=== PATIENT | female | born 1950 | race African-American/Black ===

== ENCOUNTER 2019-02-20 19:31 | Inpatient (IN) ==
[2019-02-20] MEDS ORDERED: SODIUM CHLORIDE 0.9% 1,000 ML IV STA ×2 (20:50→22:39)
[2019-02-20 21:41] LABS: Basophils % 0.9 % (0.0-0.8); Eosinophils % 0.9 % (0.00-10.9); Hematocrit 33.9 VOL% (35.7-47.0); Hemoglobin 11.9 GM/DL (12.0-16.0); Immature Granulocytes % 4.3 %; Immature Granulocytes Absolute 0.05 #; Lymphocytes # 0.5 10*3/uL (1.4-4.0); Lymphocytes % 45.3 % (21.3-54.2); Mean Corpuscular HGB Conc 35.1 GM/DL (32-36); Mean Corpuscular Volume 102.4 FL (87-102); Mean Platelet Volume 13.2 FL (9.6-12.0); Monocytes % 29.9 % (1.7-12.7); NRBC # 0.21 10*3/uL; Neutrophils % 18.7 % (38.7-73.9); Platelet Count 159 T/CUMM (130-400); Red Blood Count 3.31 MC/CUMM (3.8-5.5); Red Cell Distribution Width 16.2 % (9.3-17.3); White Blood Count 1.2 T/CUMM (4-12)
[2019-02-20 21:51] LABS: Apearance,Urine CLEAR (Clear); Bilirubin,Urine Negative (Negative); Blood, Urine Small mg/dL (Negative); Glucose,Urine (UA) Negative (Negative); Hyaline Casts,Urine 27 /LPF (0-3); Ketones,Urine 5 mg/dL (Negative); Mucus,Urine Occasional /LPF (Occasional); Nitrite,Urine Negative (Negative); Protein,Urine Negative; RBC,Urine 2 /HPF (0-4); Squamous Epithelial Cell,Urine Occasional /HPF (0-10); Urine Color Amber (Yellow); Urine Specific Gravity 1.019 (1.001-1.035); WBC,Urine 1 /HPF (0-6)
[2019-02-20 22:00] LABS: Barbiturates Screen,Urine Negative (Negative); Benzodiazepines Screen,Urine Negative (Negative); Cannabinoid Screen,Urine Negative (Negative); Opiate Screen,Urine Positive (Negative); Phencyclidine Screen,Urine Negative (Negative)
[2019-02-20 22:03] LABS: Alanine Aminotransferase 46 U/L (13-56); Albumin 2.2 G/DL (3.4-5.0); Alkaline Phosphatase 93 U/L (45-117); Aspartate Amino Transferase 115 U/L (0-37); Blood Urea Nitrogen 74 MG/DL (7-18); Calcium 6.1 MG/DL (8.5-10.1); Glucose 94 MG/DL (74-106); Osmolality,Calculated 294.8 MOS/KG (273-304)
[2019-02-20 22:04] LABS: INR 1.3; PT Patient Result 14.2 SECS
[2019-02-21 00:33] LABS: Band Neutrophils 3 % (0-10); Eosinophils 1 % (0-10); Lymphocytes 52 % (20-55); Metamyelocytes 2 %; Myelocytes 7 %; Nucleated Red Blood Cells 19 (0-5); Segmented Neutrophils 15 % (50-85); Total Cells Counted 100
[2019-02-21 00:46] LABS: Anisocytosis Slight; Atypical Lymphocytes Few; Smudge Cells Few
[2019-02-21 00:47] LABS: Howell-Jolly Bodies Slight; Polychromasia Few
[2019-02-21 00:49] LABS: Macrocytosis Slight; Platelet Estimate Normal; Target Cells Slight
[2019-02-21] MEDS ORDERED: FILGRASTIM-SNDZ 300 MCG/0.5 ML SYRINGE SUBCUT ONE (01:30)
[2019-02-21] MEDS: SODIUM CHLORIDE 0.9% 1,000 ML IV SCH ×2 (02:13→17:53)
[2019-02-21] MEDS: MEROPENEM 500 MG in SODIUM CHLORIDE 0.9% 100 ML IV SCH ×2 (02:14→13:57)
[2019-02-21] MEDS: MORPHINE 4 MG/1 ML VIAL IV PRN ×3 (02:21→20:15)
[2019-02-21 05:43] LABS: Basophils % 1.4 % (0.0-0.8); Hematocrit 35.8 VOL% (35.7-47.0); Hemoglobin 12.3 GM/DL (12.0-16.0); Immature Granulocytes % 10.7 %; Immature Granulocytes Absolute 0.15 #; Lymphocytes # 0.5 10*3/uL (1.4-4.0); Lymphocytes % 32.9 % (21.3-54.2); Mean Corpuscular HGB Conc 34.4 GM/DL (32-36); Mean Corpuscular Volume 103.2 FL (87-102); Mean Platelet Volume 13.4 FL (9.6-12.0); NRBC # 0.44 10*3/uL; Platelet Count 143 T/CUMM (130-400); Red Blood Count 3.47 MC/CUMM (3.8-5.5); Red Cell Distribution Width 16.3 % (9.3-17.3); White Blood Count 1.4 T/CUMM (4-12)
[2019-02-21 06:04] LABS: Albumin 2.2 G/DL (3.4-5.0); Bilirubin,Total 2.1 MG/DL (0.2-1.0); Osmolality,Calculated 298.4 MOS/KG (273-304); Total Protein 5.3 G/DL (6.4-8.3)
[2019-02-21 06:10] LABS: Calcium 5.8 MG/DL (8.5-10.1)
[2019-02-21 06:25] LABS: Band Neutrophils 1 % (0-10); Eosinophils 1 % (0-10); Lymphocytes 47 % (20-55); Nucleated Red Blood Cells 47 (0-5); Segmented Neutrophils 19 % (50-85); Total Cells Counted 100
[2019-02-21 06:26] LABS: Burr Cells Slight; Hypochromasia 1+; Macrocytosis 1+
[2019-02-21 06:27] LABS: Acanthocytes Few; Howell-Jolly Bodies Slight; Polychromasia Slight
[2019-02-21 06:28] LABS: Target Cells Slight
[2019-02-21] MEDS ORDERED: CALCIUM CHLORIDE 1,000 MG/10 ML SYRINGE IV ONE (07:21)
[2019-02-21] MEDS: FLUCONAZOLE INJ 200 MG in PREMIX 1 EACH IV SCH (10:20)
[2019-02-21] MEDS: CALCIUM (CARBONATE) 600 MG TABLET PO SCH ×3 (10:22→20:14)
[2019-02-21] MEDS: PANTOPRAZOLE 40 MG TABLET PO SCH ×2 (10:22→10:30)
[2019-02-21] MEDS ORDERED: GENTAMICIN INJ 120 MG in PREMIX 1 EACH IV ONE (18:00)
[2019-02-22] MEDS: MEROPENEM 500 MG in SODIUM CHLORIDE 0.9% 100 ML IV SCH ×2 (01:48→13:52)
[2019-02-22 04:24] LABS: Basophils % 0.2 % (0.0-0.8); Eosinophils % 0.1 % (0.00-10.9); Hematocrit 31.8 VOL% (35.7-47.0); Hemoglobin 11.3 GM/DL (12.0-16.0); Immature Granulocytes % 17.7 %; Immature Granulocytes Absolute 1.63 #; Lymphocytes # 1.2 10*3/uL (1.4-4.0); Lymphocytes % 12.5 % (21.3-54.2); Mean Corpuscular HGB Conc 35.5 GM/DL (32-36); Mean Corpuscular Volume 100.6 FL (87-102); Mean Platelet Volume 12.9 FL (9.6-12.0); Monocytes % 13.9 % (1.7-12.7); NRBC # 4.58 10*3/uL; Neutrophils % 55.6 % (38.7-73.9); Platelet Count 167 T/CUMM (130-400); Red Blood Count 3.16 MC/CUMM (3.8-5.5); Red Cell Distribution Width 16.2 % (9.3-17.3); White Blood Count 9.2 T/CUMM (4-12)
[2019-02-22 04:49] LABS: Bilirubin,Total 2.3 MG/DL (0.2-1.0); Calcium 6.1 MG/DL (8.5-10.1); Osmolality,Calculated 310.7 MOS/KG (273-304); Total Protein 5.6 G/DL (6.4-8.3)
[2019-02-22 05:02] LABS: Lymphocytes 57 % (20-55); Nucleated Red Blood Cells 33 (0-5); Platelet Estimate Adequate; Polychromasia Few; Segmented Neutrophils 13 % (50-85); Target Cells Few; Total Cells Counted 100
[2019-02-22] MEDS ORDERED: FILGRASTIM-SNDZ 300 MCG/0.5 ML SYRINGE SUBCUT SCH (09:00)
[2019-02-22] MEDS: DEXTROSE 5% NACL 0.45% 1,000 ML IV SCH ×3 (09:32→23:45)
[2019-02-22] MEDS: CALCIUM CHLORIDE 1,000 MG/10 ML SYRINGE IV SCH ×2 (09:33→23:09)
[2019-02-22] MEDS: FLUCONAZOLE INJ 200 MG in PREMIX 1 EACH IV SCH (09:35)
[2019-02-22] MEDS: SODIUM CHLORIDE 0.9% 1,000 ML IV SCH (09:36)
[2019-02-22] MEDS: CALCIUM (CARBONATE) 600 MG TABLET PO SCH (09:44)
[2019-02-22] MEDS: PANTOPRAZOLE 40 MG TABLET PO SCH (09:45)
[2019-02-23] MEDS: MEROPENEM 500 MG in SODIUM CHLORIDE 0.9% 100 ML IV SCH ×2 (02:23→16:28)
[2019-02-23] MEDS: CALCIUM (CARBONATE) 600 MG TABLET PO SCH ×3 (02:23→22:36)
[2019-02-23] MEDS ORDERED: LORazepam 2 MG/1 ML VIAL IV PRN (09:36)
[2019-02-23] MEDS: PANTOPRAZOLE 40 MG VIAL IV SCH (09:38)
[2019-02-23] MEDS: FLUCONAZOLE INJ 200 MG in PREMIX 1 EACH IV SCH (09:40)
[2019-02-23] MEDS: HYDROmorphone 2 MG/1 ML VIAL IV PRN (11:24)
[2019-02-23] MEDS: DEXTROSE 5% NACL 0.45% 1,000 ML IV SCH ×2 (13:37→22:35)
[2019-02-23] MEDS: cefTRIAXone 2,000 MG in SYRINGE 1 EACH IV SCH (16:28)
[2019-02-24] MEDS: HYDROmorphone 2 MG/1 ML VIAL IV PRN ×4 (00:10→21:43)
[2019-02-24] MEDS: cefTRIAXone 2,000 MG in SYRINGE 1 EACH IV SCH (03:07)
[2019-02-24 05:00] LABS: Basophils # 0.1 10*3/uL (0.0-0.2); Basophils % 0.1 % (0.0-0.8); Hematocrit 31.4 VOL% (35.7-47.0); Hemoglobin 10.5 GM/DL (12.0-16.0); Immature Granulocytes % 10.3 %; Immature Granulocytes Absolute 6.19 #; Lymphocytes # 1.7 10*3/uL (1.4-4.0); Lymphocytes % 2.8 % (21.3-54.2); Mean Corpuscular HGB Conc 33.4 GM/DL (32-36); Mean Corpuscular Volume 106.1 FL (87-102); Mean Platelet Volume 13.5 FL (9.6-12.0); Monocytes % 7.3 % (1.7-12.7); NRBC # 12.98 10*3/uL; Neutrophils % 79.5 % (38.7-73.9); Platelet Count 127 T/CUMM (130-400); Red Blood Count 2.96 MC/CUMM (3.8-5.5); Red Cell Distribution Width 17.2 % (9.3-17.3)
[2019-02-24 05:15] LABS: Calcium 6.5 MG/DL (8.5-10.1); Osmolality,Calculated 316.4 MOS/KG (273-304)
[2019-02-24 05:41] LABS: Band Neutrophils 5 % (0-10); Lymphocytes 3 % (20-55); Myelocytes 1 %; Nucleated Red Blood Cells 37 (0-5); Promyelocytes 1 %; Segmented Neutrophils 83 % (50-85); Total Cells Counted 100
[2019-02-24 05:42] LABS: Hypochromasia 1+; Macrocytosis 1+; Target Cells Slight
[2019-02-24 05:43] LABS: Polychromasia Slight
[2019-02-24 05:45] LABS: Burr Cells Slight; Platelet Estimate Adequate
[2019-02-24 06:11] LABS: Basophils # 0.1 10*3/uL (0.0-0.2); Basophils % 0.1 % (0.0-0.8); Lymphocytes # 1.4 10*3/uL (1.4-4.0); Lymphocytes % 2.4 % (21.3-54.2); Monocytes % 7.6 % (1.7-12.7); Neutrophils % 80.4 % (38.7-73.9)
[2019-02-24 06:15] LABS: White Blood Count 61.1 T/CUMM (4-12)
[2019-02-24] MEDS ORDERED: SODIUM CHLORIDE 0.9% 1,000 ML IV ONE (08:06)
[2019-02-24] MEDS: DEXTROSE 5% NACL 0.45% 1,000 ML IV SCH ×2 (10:06→21:56)
[2019-02-24] MEDS: FLUCONAZOLE INJ 200 MG in PREMIX 1 EACH IV SCH (10:09)
[2019-02-24] MEDS: PANTOPRAZOLE 40 MG VIAL IV SCH (10:13)
[2019-02-24] MEDS: CALCIUM (CARBONATE) 600 MG TABLET PO SCH ×2 (10:13→21:49)
[2019-02-24] MEDS: MEROPENEM 1,000 MG in SODIUM CHLORIDE 0.9% 100 ML IV SCH ×2 (12:06→21:49)
[2019-02-24] MEDS: LORazepam 2 MG/1 ML VIAL IV PRN ×2 (12:10→16:13)
[2019-02-25] MEDS: LORazepam 2 MG/1 ML VIAL IV PRN ×4 (00:49→20:18)
[2019-02-25] MEDS: HYDROmorphone 2 MG/1 ML VIAL IV PRN ×5 (04:03→20:20)
[2019-02-25 04:54] LABS: Basophils # 0.1 10*3/uL (0.0-0.2); Basophils % 0.1 % (0.0-0.8); Hematocrit 31.6 VOL% (35.7-47.0); Hemoglobin 10.8 GM/DL (12.0-16.0); Immature Granulocytes % 6.8 %; Immature Granulocytes Absolute 3.27 #; Lymphocytes # 1.3 10*3/uL (1.4-4.0); Lymphocytes % 2.8 % (21.3-54.2); Mean Corpuscular HGB Conc 34.2 GM/DL (32-36); Mean Corpuscular Volume 105.3 FL (87-102); Monocytes % 8.2 % (1.7-12.7); NRBC # 13.03 10*3/uL; Neutrophils % 82.1 % (38.7-73.9); Platelet Count 101 T/CUMM (130-400); Red Cell Distribution Width 18.1 % (9.3-17.3)
[2019-02-25 05:24] LABS: Osmolality,Calculated 311.7 MOS/KG (273-304)
[2019-02-25 06:09] LABS: Anisocytosis 1+; Band Neutrophils 3 % (0-10); Hypochromasia 1+; Lymphocytes 2 % (20-55); Macrocytosis 1+; Metamyelocytes 3 %; Myelocytes 3 %; Nucleated Red Blood Cells 45 (0-5); Ovalocytes 1+; Platelet Estimate Decreased; Segmented Neutrophils 84 % (50-85); Total Cells Counted 100
[2019-02-25] MEDS: DEXTROSE 5% NACL 0.45% 1,000 ML IV SCH ×3 (08:10→16:34)
[2019-02-25] MEDS: FLUCONAZOLE INJ 200 MG in PREMIX 1 EACH IV SCH (09:30)
[2019-02-25] MEDS: MEROPENEM 1,000 MG in SODIUM CHLORIDE 0.9% 100 ML IV SCH ×2 (09:30→21:45)
[2019-02-25] MEDS: CALCIUM (CARBONATE) 600 MG TABLET PO SCH (10:18)
[2019-02-25] MEDS: PANTOPRAZOLE 40 MG VIAL IV SCH (10:18)
[2019-02-25] MEDS: ONDANSETRON 4 MG/2 ML VIAL IV PRN (20:20)
[2019-02-26] MEDS: HYDROmorphone 2 MG/1 ML VIAL IV PRN ×4 (00:10→15:24)
[2019-02-26] MEDS: LORazepam 2 MG/1 ML VIAL IV PRN ×4 (00:10→15:24)
[2019-02-26] MEDS: ONDANSETRON 4 MG/2 ML VIAL IV PRN (00:11)
[2019-02-26] MEDS: CALCIUM (CARBONATE) 600 MG TABLET PO SCH (01:27)
[2019-02-26] MEDS: DEXTROSE 5% NACL 0.45% 1,000 ML IV SCH (02:33)
[2019-02-26 05:02] LABS: Basophils # 0.1 10*3/uL (0.0-0.2); Basophils % 0.2 % (0.0-0.8); Hematocrit 30.4 VOL% (35.7-47.0); Hemoglobin 10.3 GM/DL (12.0-16.0); Immature Granulocytes % 5.5 %; Immature Granulocytes Absolute 1.79 #; Lymphocytes # 1.2 10*3/uL (1.4-4.0); Lymphocytes % 3.8 % (21.3-54.2); Mean Corpuscular HGB Conc 33.9 GM/DL (32-36); Mean Corpuscular Volume 104.8 FL (87-102); NRBC # 10.79 10*3/uL; Neutrophils % 81.5 % (38.7-73.9); Red Cell Distribution Width 17.8 % (9.3-17.3); White Blood Count 32.7 T/CUMM (4-12)
[2019-02-26 05:24] LABS: Platelet Count 61 T/CUMM (130-400)
[2019-02-26 05:28] LABS: Calcium 5.9 MG/DL (8.5-10.1); Osmolality,Calculated 303.6 MOS/KG (273-304)
[2019-02-26 06:11] LABS: Lymphocytes 11 % (20-55); Nucleated Red Blood Cells 38 (0-5); Platelet Estimate Decreased; Polychromasia Few; Segmented Neutrophils 81 % (50-85); Total Cells Counted 100
[2019-02-26] MEDS: FLUCONAZOLE INJ 200 MG in PREMIX 1 EACH IV SCH (09:03)
[2019-02-27] MEDS: LORazepam 2 MG/1 ML VIAL IV PRN ×2 (02:11→16:38)
[2019-02-27] MEDS: HYDROmorphone 2 MG/1 ML VIAL IV PRN ×4 (02:14→23:17)
[2019-02-28] MEDS: HYDROmorphone 2 MG/1 ML VIAL IV PRN ×4 (05:41→22:26)
[2019-02-28] MEDS: SCOPOLAMINE 1.5 MG PATCH TRANSDERM SCH (11:38)
[2019-03-01] MEDS: HYDROmorphone 2 MG/1 ML VIAL IV PRN (04:27)
[2019-03-01] MEDS ORDERED: MORPHINE 4 MG/1 ML VIAL IV PRN (08:53)
[2019-03-01] MEDS: LORazepam 2 MG/1 ML VIAL IV PRN ×2 (10:47→17:26)
[2019-03-01] MEDS: MORPHINE 4 MG/1 ML VIAL IV PRN ×2 (10:50→17:26)
[2019-03-02] MEDS: MORPHINE 4 MG/1 ML VIAL IV PRN ×4 (01:50→22:58)
[2019-03-02] MEDS: LORazepam 2 MG/1 ML VIAL IV PRN ×2 (12:41→22:55)
[2019-03-03] MEDS: MORPHINE 4 MG/1 ML VIAL IV PRN ×3 (04:28→17:12)
[2019-03-03] MEDS: LORazepam 2 MG/1 ML VIAL IV PRN ×3 (04:34→17:11)
[2019-03-03] MEDS: SCOPOLAMINE 1.5 MG PATCH TRANSDERM SCH (10:11)
[2019-03-04] MEDS: LORazepam 2 MG/1 ML VIAL IV PRN ×3 (02:53→17:45)
[2019-03-04] MEDS: MORPHINE 4 MG/1 ML VIAL IV PRN ×4 (03:10→20:04)
[2019-03-05] MEDS: MORPHINE 4 MG/1 ML VIAL IV PRN ×2 (12:13→21:19)
[2019-03-05] MEDS: LORazepam 2 MG/1 ML VIAL IV PRN (12:15)
[2019-03-05] MEDS: DESITIN 4OZ/NYSTATIN 15 GRAM MIXTURE PASTE TOP SCH (21:31)
[2019-03-06] MEDS ORDERED: ATROPINE 1 % OPH SOLN 5 ML BOTTLE PO PRN (00:42)
[2019-03-06] MEDS: ACETAMINOPHEN 650 MG SUPP RECTAL PRN (05:40)
[2019-03-06] MEDS: SCOPOLAMINE 1.5 MG PATCH TRANSDERM SCH (10:30)
[2019-03-06] MEDS: DESITIN 4OZ/NYSTATIN 15 GRAM MIXTURE PASTE TOP SCH (10:30)
[2019-03-06] MEDS: MORPHINE 4 MG/1 ML VIAL IV PRN ×2 (10:32→22:48)
[2019-03-07] MEDS: ACETAMINOPHEN 650 MG SUPP RECTAL PRN (02:28)
[2019-03-07] MEDS: DESITIN 4OZ/NYSTATIN 15 GRAM MIXTURE PASTE TOP SCH ×3 (06:14→20:26)
[2019-03-07] MEDS: MORPHINE 4 MG/1 ML VIAL IV PRN ×3 (08:42→20:26)
[2019-03-07 20:54] VITALS: BP 105/53
[2019-03-08] MEDS: MORPHINE 4 MG/1 ML VIAL IV PRN ×3 (01:10→14:15)
[2019-03-08] MEDS: DESITIN 4OZ/NYSTATIN 15 GRAM MIXTURE PASTE TOP SCH (08:45)
== END 2019-03-08 14:28 | disposition hospice, home (50) | DRG 871 ==
LOC: EDUNIT# → EDBD → N.ED 19:31 → N.EDINP 23:39 → SUATTDRO 23:39 → N.4E 02-21 01:04
PROVIDERS: ADMIT Internal Medicine; ATTEND Hospitalist